=== PATIENT | male | born 1975 | race Caucasian/White ===

== ENCOUNTER 2018-05-13 18:28 | Emergency (ER) | payer SELFPAY ==
[~2018-05-13] VITALS: Ht 175.3 cm; Wt 76.4 kg
[2018-05-13 19:15] VITALS: BP 149/75
[2018-05-13] MEDS ORDERED: BACITRACIN 0.9 GM PACKET OINTMENT TP ONE (19:30)
[2018-05-13] MEDS ORDERED: POVIDONE-IODINE 10% 15 ML SOLUTION UD TP ONE (19:30)
[2018-05-13] MEDS ORDERED: PERTUSS(ACELL),DIPH,TET VAC/PF 0.5 ML VIAL IM ONE (19:30)
[2018-05-13] MEDS ORDERED: IBUPROFEN 800 MG TABLET PO ONE (19:30)
[2018-05-13] MEDS ORDERED: CIPROFLOXACIN HCL 250 MG TABLET PO ONE (19:45)
== END 2018-05-13 19:43 | disposition home or self-care (01) ==
LOC: EMS 18:30
DX: S91.332A Puncture wound without foreign body, left foot, initial encounter (principal); W22.09XA Striking against other stationary object, initial encounter; Y93.89 Activity, other specified; Y92.096 Garden or yard of other non-institutional residence as the place of occurrence of the external cause; Y99.8 Other external cause status
CPT/HCPCS: 90471; 90715